=== PATIENT | female | born 1935 | race Caucasian/White ===

== ENCOUNTER 2016-04-25 07:21 | Emergency (ER) | payer MEDICARE ==
[2016-04-25 11:15] LABS: LYMPH - BF 28 %; MACROPHAGES BF 8 %; NEUT - BF 64 %
== END 2016-04-25 11:09 | disposition home or self-care (01) ==
LOC: D.ER 07:21
PROVIDERS: Emergency Medicine
DX: M25.462 Effusion, left knee (principal)

== ENCOUNTER 2016-06-25 01:14 | Inpatient (IN) | payer MEDICARE, OTHER ==
[~2016-06-25] VITALS: Ht 160 cm; Wt 49.9 kg
[2016-06-25 02:35] LABS: BASOPHILS 0.1 % (0-2); EOSINOPHILS 0 % (0-7); HEMATOCRIT 38.2 % (36.0-48.0); HEMOGLOBIN 12.4 g/dL (12-16); IMMATURE GRANULOCYTES 0.2 % (0-5); MCH 31.4 pg (26.0-34.0); MCHC 32.5 g/dL (31.0-37.0); MCV 96.7 fL (80.0-100.0); MEAN PLATELET VOLUME 9.5 fL (7.4-10.4); NEUTROPHILS 86.7 % (40-80); PLATELET COUNT 189 10x3/uL (130-400); RBC 3.95 10x6/uL (4.00-5.40); RDW 13.9 % (11.5-14.5); WBC 8.3 10x3/uL (4.8-10.8)
[2016-06-25 02:38] LABS: APTT 22.2 SECONDS (22.8-39.4)
[2016-06-25 02:42] LABS: ALBUMIN 3.3 g/dL (3.4-5.0); BILIRUBIN - TOTAL 0.4 mg/dL (0.2-1.3); CALCIUM 9.2 mg/dL (8.5-10.1); CARBON DIOXIDE 30.3 mmol/L (21.0-32.0); CREATININE - SERUM 0.8 mg/dL (0.6-1.3); POTASSIUM - SERUM 3.3 mmol/L (3.5-5.1)
[2016-06-25 02:49] LABS: TROPONIN-I 0.019 ng/mL (0.000-0.060)
--- NOTE | 2016-06-25 07:30 | NUR ---
RECIEVED PT FROM ER, PT RESTING COMFORTABLE IN BED WITH NO COMPLAINTS OF PAIN OR DISCOMFORT AT THIS TIME. ASSESSMENT DONE PER FLOWSHEET. BED IN LOW POSITION AND CALL LIGHT WITHIN REACH. WILL CONTINUE TO MONITOR.
[2016-06-25] MEDS ORDERED: ARICEPT5 MG PO (07:40)
[2016-06-25 08:16] VITALS: BP 142/57
[2016-06-25 09:42] VITALS: BMI 19.5
--- NOTE | 2016-06-25 10:20 | NUR ---
WAS CALLED INTO ROOM AT THIS TIME DUE TO PT HAVING AN EPISODE OF NAUSEA. PROTONIX GIVEN PER ORDER. PT STATED SHE WAS FEELING BETTER. BED IN LOW POSITION AND CALL LIGHT WITHIN REACH. WILL CONTINUE TO MONITOR.
[2016-06-25 12:22] VITALS: BP 107/59
[2016-06-25 14:14] LABS: APPEARANCE CLOUDY (CLEAR); BILIRUBIN NEGATIVE (NEGATIVE); COLOR YELLOW (YELLOW); GLUCOSE NEGATIVE (NEGATIVE); KETONE NEGATIVE (NEGATIVE); LEUKOCYTE ESTERASE 2+ (NEGATIVE); NITRITE POSITIVE (NEGATIVE); PROTEIN 1+ mg/dL (NEGATIVE); SPECIFIC GRAVITY 1.025 (1.005-1.020); UROBILINOGEN NORMAL (NORMAL)
[2016-06-25 14:16] LABS: BACTERIA MANY /hpf (NONE SEEN); EPITHELIAL CELLS RARE /hpf (0-5); MUCUS <1+ /lpf (NONE SEEN); WHITE CELLS - URINE >50 /hpf (0-5)
[2016-06-25 14:53] VITALS: Ht 160 cm; Wt 49.9 kg
[2016-06-25 16:31] VITALS: BP 136/63
--- NOTE | 2016-06-25 19:00 | NUR ---
PATIENT RESTING WITH EYES CLOSED SUPINE IN BED. AROUSES TO VOICE. ORIENTED X4. RR EVEN AND UNLABORED. 0 S/S OF DISTRESS. DENIES PAIN AT THIS TIME. IV TO RIGHT AC PATENT WITH NO REDNESS OR SWELLING. DANIELLE SECURES WITH STATLOCK AND DRAINING TO GRAVITY. B/A ON. DAUGHTER AT BEDSIDE. SRX2. BED LOW. CALL LIGHT WITHIN REACH.
[2016-06-25 20:00] VITALS: BP 150/69
--- NOTE | 2016-06-25 23:00 | NUR ---
NIGHTTIME MEDICATION GIVEN. DENIES NEEDS AT THIS TIME.
[2016-06-26] VITALS: BP 116/48
--- NOTE | 2016-06-26 00:30 | NUR ---
DILAUDID GIVEN FOR PAIN AND ZOFRAN GIVEN FOR NAUSEA PER ORDER.
[2016-06-26 04:00] VITALS: BP 140/56
[2016-06-26 05:45] LABS: BASOPHILS 0.2 % (0-2); EOSINOPHILS 0.5 % (0-7); HEMATOCRIT 35.8 % (36.0-48.0); HEMOGLOBIN 11.4 g/dL (12-16); IMMATURE GRANULOCYTES 0.2 % (0-5); LYMPHOCYTES 14.4 % (15-50); MCH 31.1 pg (26.0-34.0); MCHC 31.8 g/dL (31.0-37.0); MCV 97.5 fL (80.0-100.0); MEAN PLATELET VOLUME 9.8 fL (7.4-10.4); MONOCYTES 12.9 % (2-11); NEUTROPHILS 71.8 % (40-80); PLATELET COUNT 188 10x3/uL (130-400); RBC 3.67 10x6/uL (4.00-5.40); RDW 14.2 % (11.5-14.5); WBC 6.3 10x3/uL (4.8-10.8)
[2016-06-26 06:04] LABS: ALKALINE PHOSPHATASE 58 U/L (46-116); ALT (SGPT) 17 U/L (10-68); BILIRUBIN - TOTAL 0.58 mg/dL (0.2-1.3); CALC OSMOLALITY 276 mosm/kg (275-300); CARBON DIOXIDE 31.2 mmol/L (21.0-32.0); CHLORIDE - SERUM 104 mmol/L (98-107); CREATININE - SERUM 0.7 mg/dL (0.6-1.3); GLUCOSE 103 mg/dL (74-106); POTASSIUM - SERUM 4.8 mmol/L (3.5-5.1); PROTEIN - SERUM 6.6 g/dL (6.4-8.2); SODIUM 139 mmol/L (136-145); UREA NITROGEN 9 mg/dL (7-18); eGFR NON AFRICAN AMERICAN 85 mL/min (90-120)
--- NOTE | 2016-06-26 07:30 | NUR ---
PATIENT RESTING QUIETLY WITH EYES CLOSED. NO SIGNS OF DISTRESS NOTED. BED IN LOWEST POSITION, CALL LIGHT IN REACH. BED RAILS UP X'S 2. FAMILY MEMBER AT BEDSIDE IN THE RECLINER. PATIENT DENIES NEEDS.
--- NOTE | 2016-06-26 07:45 | NUR ---
PT ASSSESSMENT COMPLETE AWAKE AND ALERT ORIENTED X 3 LUNGS CLAER BILATERALLY HAS NOTED FX LEFT HIP NPO FOR POSSIBLE OR TODAY WITH DR LAURENT. FAMILY AT BEDSIDE. CALL LIGHT INR EACH SIDE RAILS UP
[2016-06-26 08:44] VITALS: BP 111/62
--- NOTE | 2016-06-26 11:00 | NUR ---
PT IV PULLED OUT AND LEAKING ON BED LINNEN CHANGED WILL RESITE IV
[2016-06-26 12:24] VITALS: BP 125/66
--- NOTE | 2016-06-26 14:00 | NUR ---
PT TO OR VIA BED AT THIS TIME.
--- NOTE | 2016-06-26 15:54 | NUR ---
DR PONCE GLOVES CHANGED, HOLE IN GLOVE, WILLAM.
[2016-06-26 17:20] VITALS: BP 122/63
--- NOTE | 2016-06-26 17:21 | NUR ---
PT RECIEVED BACK TO ROOM 2210 FROM POST RECOVERY AWAKE AND ALERT VS WNL SEE CHART. SPO2 100 %
--- NOTE | 2016-06-26 17:45 | NUR ---
PERIPHERIAL PULSE IN TACT TO LEFT FOOT SURGICAL DRESSING IN PLACE. NO ACUTE DISTRESS DENIES PAIN
--- NOTE | 2016-06-26 19:00 | NUR ---
PATIENT SUPINE IN BED. HOB 30 DEGREES. AAOX4. RR EVEN AND UNLABORED. 0 S/S OF DISTRESS. DENIES PAIN AT THIS TIME. IV TO LEFT HAND PATENT WITH NO REDNESS OR SWELLING. DRESSING TO LEFT HIP CDI. DANIELLE SECURED WITH STATLOCK AND DRAINING TO GRAVITY. B/A ON. DAUGHTER AT BEDSIDE. SRX2. BED LOW. CALL LIGHT WITHIN REACH.
[2016-06-26 20:00] VITALS: BP 128/69
--- NOTE | 2016-06-26 20:45 | NUR ---
PATIENT'S LEFT LEG IS COMPLETELY INVERTED. ATTEMPTED TO STRAIGHTEN IT OUT, BUT PATIENT CANNOT STAND ANY MOVEMENT. NOTIFIED DR. LAURENT. STAT PELVIC X-RAY ORDERED.
--- NOTE | 2016-06-26 21:45 | NUR ---
X-RAY CALLED AND STATED THAT "EVERYTHING LOOKS FINE." NOTIFIED DR. LAURENT OF RESULTS. NIGHTTIME MEDS GIVEN. NO OTHER NEEDS AT THIS TIME.
--- NOTE | 2016-06-26 23:50 | NUR ---
ATTEMPTED TO TURN PATIENT. PATIENT UNABLE TO TOLERATE. ZOFRAN AND DILAUDID GIVEN. TURNED PATIENT TO RIGHT SIDE.
[2016-06-27] VITALS: BP 126/76
[2016-06-27 04:00] VITALS: BP 115/74
[2016-06-27 05:29] LABS: BASOPHILS 0 % (0-2); EOSINOPHILS 0 % (0-7); HEMATOCRIT 33.1 % (36.0-48.0); HEMOGLOBIN 10.7 g/dL (12-16); IMMATURE GRANULOCYTES 0.1 % (0-5); LYMPHOCYTES 3.7 % (15-50); MCH 31.1 pg (26.0-34.0); MCHC 32.3 g/dL (31.0-37.0); MCV 96.2 fL (80.0-100.0); MEAN PLATELET VOLUME 9.8 fL (7.4-10.4); MONOCYTES 13.9 % (2-11); NEUTROPHILS 82.3 % (40-80); PLATELET COUNT 182 10x3/uL (130-400); RBC 3.44 10x6/uL (4.00-5.40); RDW 14.2 % (11.5-14.5)
[2016-06-27 05:30] LABS: WBC 9.5 10x3/uL (4.8-10.8)
[2016-06-27 05:55] LABS: ALBUMIN 2.7 g/dL (3.4-5.0); ALKALINE PHOSPHATASE 53 U/L (46-116); ALT (SGPT) 20 U/L (10-68); CALC OSMOLALITY 272 mosm/kg (275-300); CALCIUM 8.8 mg/dL (8.5-10.1); CARBON DIOXIDE 27.1 mmol/L (21.0-32.0); CHLORIDE - SERUM 103 mmol/L (98-107); CREATININE - SERUM 0.7 mg/dL (0.6-1.3); GLUCOSE 134 mg/dL (74-106); POTASSIUM - SERUM 4.3 mmol/L (3.5-5.1); PROTEIN - SERUM 6.3 g/dL (6.4-8.2); SODIUM 136 mmol/L (136-145); UREA NITROGEN 11 mg/dL (7-18); eGFR NON AFRICAN AMERICAN 85 mL/min (90-120)
--- NOTE | 2016-06-27 06:15 | NUR ---
MORNING MEDS GIVEN. PATIENT HAS BEEN EXTREMELY STIFF. GAVE DILAUDID AND ATTEMPTED TO REPOSITION PATIENT'S LEG.
--- NOTE | 2016-06-27 07:30 | NUR ---
PATIENT IS AWAKE, BUT STILL SLEEPY. SHE IS RECEIVING HER BREATHING TX. CHECKED BANDAGE TO LEFT HIP IT IS CDI, IV IN LEFT HAND IS PATENT, DANIELLE DRAINING WELL.
--- NOTE | 2016-06-27 09:00 | NUR ---
PATIENT IS MORE AWAKE AND ALERT, SHE IS PLEASANT, SHE WANTS TO MAKE SURE SHE DOES NOT ACT LIKE A WHINEY BABY. EXPLAINED TO HER THAT SHE IS NOT, SHE IS DOING GREAT.
[2016-06-27 09:04] VITALS: BP 101/62
[2016-06-27 11:40] VITALS: BP 86/71
--- NOTE | 2016-06-27 11:56 | NUR ---
Patient Name: SAVANAH GILBERT Admission Status: ER Accout number: [id number] Admission Date: 06-25-2016 : 1934 Admission Diagnosis: Attending: SANA Current LOS: 2 Anticipated DC Date: 06-30-2016 Planned Disposition: Inpatient Rehab Primary Insurance: MEDICARE A & B Discharge Planning Comments: CM MET WITH PATIENT WITH D/C NEEDS AND PLANS. PATIENT STATED SHE LIVES WITH A 24/7 CAREGIVER (CHRISTINA CHAMBERS). PATIENTS DAUGHTER (MYRNA) LIVES OUT OF TOWN. PATIENT HAS A RAMP TO ENTER HOME AND NO STAIRS INSIDE. PATIENT HAS A WALKER AND BUILT IN SHOWER CHAIR AT HER HOME. PATIENTS PCP IS DR. DOMÍNGUEZ AND HER PHARMACY IS [facility]. WHEN PATIENT IS DISCHARGED SHE WILL GO TO IP REHAB. CM WILL CONTINUE TO FOLLOW PATIENT WITH D/C NEEDS AND PLANS. PCP DR[facility] [phone] CHRISTINA (24/7 CAREGIVER) [phone] MYRNA (DAUGHTER) OUT OF TOWN Customer Experience Specialist: Mallory Castillo Is the patient Alert and Oriented? Yes 0 * How many steps to enter\exit or inside your home? RAMP 0 * PCP DR. DOMÍNGUEZ 0 * Pharmacy [facility] 0 * Preadmission Environment Home Alone 0 * ADLs Independent 0 * Equipment Walker 0 * List name and contact numbers for known caregivers / representatives who currently or will assist patient after discharge: MYRNA (DAUGHTER) CHRISTINA CHAMBERS (24/7 CAREGIVER) [phone] * Additional services required to return to the preadmission environment? Yes 0 * Can the patient safely return to the preadmission environment? Yes 0 * Has this patient been hospitalized within the prior 30 days at any hospital? No 0 Grand Total: 0
--- NOTE | 2016-06-27 12:00 | NUR ---
PATIENT IS PLEASANT NO NEEDS DENIES PAIN, ALTHOUGH, WHEN SHE MOVES HER LEFT LEG OR FOOT SHE DOES WHENCE. DOES NOT WANT PAIN MEDICINE.
--- NOTE | 2016-06-27 13:04 | NUR ---
Nutrition Follow Up: Pt was asleep at the time of RD visit. Interview deferred at this time. Pt is eating 25% meal avg on a regular diet. Wt stable. I>O. No BM recorded since admit. Labs reviewed. Meds noted. Pt with poor po intake at this time. Rec continue current diet. Will continue to provide selective menus and honor food preferences. RD will continue to monitor pt progress.
--- NOTE | 2016-06-27 13:14 | NUR ---
Rehab Note- Acute Rehab Prescreen order received. Visited with the patient and spoke with JERRY Tejada. Plan for admit to [facility] Acute Rehab on Thursday 06/29. Thank you for this referral! Bianca Paulson RN Clinical Liaison, [facility] Rehab/[place]
--- NOTE | 2016-06-27 14:00 | NUR ---
PATIENT HAS A COUPLE FRIENDS IN HER ROOM WITH HER, SHE IS TURNED OFF OF HER BUTTOCKS. NO C/O.
[2016-06-27 15:52] VITALS: BP 118/72
--- NOTE | 2016-06-27 17:38 | NUR ---
PATIENT WANTS TO TURN AND SO SHE REQUESTED PAIN MED, PROVIDED ZOFRAN AND DILAUDID IV SEE MAR.
--- NOTE | 2016-06-27 18:15 | NUR ---
TURNED PATIENT TO HER RIGHT SIDE AFTER MEDS TOOK AFFECT AND SHE DID WELL. NO C/O.
--- NOTE | 2016-06-27 19:42 | NUR ---
PT IN ROOM GETTING HER UP OUT OF BED. PATIENT IS PLEASANT SHE SAID SHE REALLY LIKED THE PT MAN.
[2016-06-27 20:00] VITALS: BP 113/68
--- NOTE | 2016-06-28 00:43 | NUR ---
ASSESSED AT THE ABEGINNING OF THE SHIFT. PT WAS SLEEPING AT THAT TIME AND HER DAUGHTER REMAINS AT THE BEDSIDE. THE DRESSING TO HER LEFT HIP IS DRY AND INTACT. SHE IS EASILY CONFUSED AND YOU HAVE TO TAKE A LITTLE TIME TO ORIENT HER WHEN SHE WAKES UP. SHE TOOK HER NIGHT MEDS AND HAS ALSO HAD A DOSE OF PAIN MEDS WHEN SHE WAS SHOWING PAIN. RIGHT NOW SHE IS ASLEEP WITH EASY RESPIRATIONS AND THE DAUGHTER ASKED THAT WE LET HER SLEEP THROUGH THE MIDNIGHT VITAL SIGNS. THE BED IS LOW, RAILS UP X'S 2 WITH THE CALL LIGHT AT HAND, SHE IS BEING TURNED PER PROTOCOL.
[2016-06-28 04:00] VITALS: BP 120/70
[2016-06-28 06:59] LABS: BASOPHILS 0.1 % (0-2); EOSINOPHILS 0.2 % (0-7); HEMATOCRIT 28.2 % (36.0-48.0); HEMOGLOBIN 9.2 g/dL (12-16); IMMATURE GRANULOCYTES 0.4 % (0-5); LYMPHOCYTES 8.5 % (15-50); MCH 31.3 pg (26.0-34.0); MCHC 32.6 g/dL (31.0-37.0); MCV 95.9 fL (80.0-100.0); MEAN PLATELET VOLUME 9.5 fL (7.4-10.4); MONOCYTES 11.9 % (2-11); NEUTROPHILS 78.9 % (40-80); PLATELET COUNT 170 10x3/uL (130-400); RBC 2.94 10x6/uL (4.00-5.40); WBC 9.8 10x3/uL (4.8-10.8)
--- NOTE | 2016-06-28 07:20 | NUR ---
PATIENT RECEIVED IN MID DUNNE POSITION RESTING WITH EYES CLOSED. RESPIRATIONS EVEN AND UNLABORED. DAUGHTER AT BEDSIDE. SIDE RAILS UP X2. BED IN LOW POSITION. CALL LIGHT IN REACH.
[2016-06-28 07:21] LABS: ALBUMIN 2.2 g/dL (3.4-5.0); ALKALINE PHOSPHATASE 56 U/L (46-116); BILIRUBIN - TOTAL 0.66 mg/dL (0.2-1.3); CALC OSMOLALITY 259 mosm/kg (275-300); CALCIUM 8.2 mg/dL (8.5-10.1); CARBON DIOXIDE 27.2 mmol/L (21.0-32.0); CHLORIDE - SERUM 99 mmol/L (98-107); CREATININE - SERUM 0.7 mg/dL (0.6-1.3); GLUCOSE 91 mg/dL (74-106); POTASSIUM - SERUM 3.8 mmol/L (3.5-5.1); PROTEIN - SERUM 5.7 g/dL (6.4-8.2); SODIUM 130 mmol/L (136-145); UREA NITROGEN 10 mg/dL (7-18); eGFR NON AFRICAN AMERICAN 85 mL/min (90-120)
[2016-06-28 07:23] LABS: ALT (SGPT) 14 U/L (10-68)
[2016-06-28 07:32] VITALS: BP 132/62
--- NOTE | 2016-06-28 08:30 | NUR ---
PATIENT REPOSITIONED IN BED. WELL TOLERATED. FAMILY AT BEDSIDE. SIDE RAILS UP X2. BED IN LOW POSITION. CALL LIGHT IN REACH.
[2016-06-28 11:20] VITALS: BP 106/54
--- NOTE | 2016-06-28 11:35 | NUR ---
URINE SAMPLE OBTAINED FROM DANIELLE VIA ACCESS PORT.
[2016-06-28 11:57] LABS: APPEARANCE HAZY (CLEAR); BILIRUBIN NEGATIVE (NEGATIVE); COLOR YELLOW (YELLOW); GLUCOSE NEGATIVE (NEGATIVE); KETONE NEGATIVE (NEGATIVE); LEUKOCYTE ESTERASE 2+ (NEGATIVE); NITRITE NEGATIVE (NEGATIVE); PROTEIN NEGATIVE (NEGATIVE); SPECIFIC GRAVITY 1.005 (1.005-1.020); UROBILINOGEN NORMAL (NORMAL)
[2016-06-28 12:00] LABS: BACTERIA MODERATE /hpf (NONE SEEN); RED CELLS - URINE 0-5 /hpf (0-5); WHITE CELLS - URINE >50 /hpf (0-5)
[2016-06-28 12:01] LABS: EPITHELIAL CELLS OCC /hpf (0-5)
--- NOTE | 2016-06-28 13:59 | NUR ---
PATIENT IN MID DUNNE POSITION RESTING WITH EYES CLOSED. RESPIRATIONS EVEN AND UNLABORED. SIDE RAILS UP X2. BED IN LOW POSITION. CALL LIGHT IN REACH. FAMILY AT BEDSIDE.
[2016-06-28 15:26] VITALS: BP 131/66
--- NOTE | 2016-06-28 15:45 | NUR ---
DANIELLE CARE PROVIDED. DANIELLE CATH D/C WITH TIP INTACT. APPROXIMATELY 200CC REMAINED IN COLLECTION BAG. WELL TOLERATED. REPOSITIONED FOR COMFORT. SIDE RAILS UP X2. BED IN LOW POSITION. CALL LIGHT IN REACH. BED ALARM ON.
--- NOTE | 2016-06-28 16:30 | NUR ---
ALERT IN BED WATCHING TV. RESPIRATIONS EVEN AND UNLABORED. SIDE RAILS UP X2. DENIES PAIN. CALL LIGHT IN REACH. BED IN LOW POSITION.
--- NOTE | 2016-06-28 18:00 | NUR ---
ALERT IN BED WATCHING TV WITH DAUGHTER AT BEDSIDE. SIDE RAILS UP X2. BED IN LOW POSITION. CALL LIGHT IN REACH.
[2016-06-28 20:00] VITALS: BP 120/68
[2016-06-29] VITALS: BP 125/80
--- NOTE | 2016-06-29 03:33 | NUR ---
ASSESSED AT THE BEGINNING OF THE SHIFT. PT IS RESTING WELL WITH DAUGHTER AT THE BEDSIDE. WE ARE ASSISTING HER WITH THE BEDPAN FOR VOIDING AND ALSO TRYING TO MAKE SURE SHE TURNS PER PROTOCOL. SHE IS NOT WANTING TO MOVE MUCH BECAUSE IT HURTS. SHE TOOK ALL HER HS MEDS AND ALSO PAIN MEDS ORDERED. HER SCD'S ARE IN PLACE AND SHE HAS RESTED WELL. THE BED IS LOW, RAILS UP X'S 2 WITH THE CALL LIGHT AT THE DAUGHTERS SIDE.
[2016-06-29 04:00] VITALS: BP 131/81
[2016-06-29 05:29] LABS: BASOPHILS 0.1 % (0-2); EOSINOPHILS 0.5 % (0-7); HEMATOCRIT 27.3 % (36.0-48.0); IMMATURE GRANULOCYTES 0.2 % (0-5); LYMPHOCYTES 8.1 % (15-50); MCH 31.7 pg (26.0-34.0); MCV 96.1 fL (80.0-100.0); MEAN PLATELET VOLUME 9.5 fL (7.4-10.4); MONOCYTES 7.8 % (2-11); NEUTROPHILS 83.3 % (40-80); PLATELET COUNT 202 10x3/uL (130-400); RBC 2.84 10x6/uL (4.00-5.40); WBC 8.3 10x3/uL (4.8-10.8)
[2016-06-29 05:52] LABS: ALBUMIN 2.1 g/dL (3.4-5.0); ALKALINE PHOSPHATASE 71 U/L (46-116); ALT (SGPT) 12 U/L (10-68); CALC OSMOLALITY 273 mosm/kg (275-300); CALCIUM 8.4 mg/dL (8.5-10.1); CARBON DIOXIDE 30.8 mmol/L (21.0-32.0); CHLORIDE - SERUM 102 mmol/L (98-107); CREATININE - SERUM 0.7 mg/dL (0.6-1.3); GLUCOSE 111 mg/dL (74-106); POTASSIUM - SERUM 4.2 mmol/L (3.5-5.1); PROTEIN - SERUM 5.7 g/dL (6.4-8.2); SODIUM 137 mmol/L (136-145); UREA NITROGEN 11 mg/dL (7-18); eGFR NON AFRICAN AMERICAN 85 mL/min (90-120)
--- NOTE | 2016-06-29 07:45 | NUR ---
SLEEPING AT THIS TIME. LYING SUPINE WITH RESPIRATIONS EVEN AND NON LABORED. BED ALARM ON AND IN WORKING ORDER. DAUGHTER AT BEDSIDE SLEEPING IN RECLINER. CALL LIGHT IN REACH, WILL CONTINUE WITH PLAN OF CARE.
[2016-06-29 09:06] VITALS: BP 118/63
--- NOTE | 2016-06-29 09:28 | NUR ---
SCHEDULED MEDICATIONS ADMINISTERED AT THIS TIME WITHOUT DIFFICULTY. ASSESSMENT PERFORMED PER FLOWSHEET. DAUGHTER AT BEDSIDE. DENIES NEED FOR PAIN MEDICATION AT THIS TIME. WILL CONTINUE WITH PLAN OF CARE.
--- NOTE | 2016-06-29 10:15 | NUR ---
ASSISTED ON BED COREY SO THAT PT COULD VOID AT THIS TIME. UP IN CHAIR PER PHYSICAL THERAPY. ASSISTED ON BED COREY IN THE CHAIR WITH 2 PERSON ASSIST. CALL LIGHT IN REACH AND INSTRUCTED PT TO CALL WHEN SHE WAS FINISHED. VERBALIZED UNDERSTANDING. WILL CONTINUE WITH PLAN OF CARE.
[2016-06-29 11:48] VITALS: BP 135/68
--- NOTE | 2016-06-29 12:48 | NUR ---
PRN NORCO-5 2 TABLETS ADMINISTERED FOR PAIN AT THIS TIME. PT WILL BE TRANSFERRED TO [facility] IN DISCHARGE ORDERS ARE PLACED IN THE COMPUTER AND DISCHARGE PAPERWORK IS COMPLETE. FAMILY REMAINS AT BEDSIDE. WILL CONTINUE WITH PLAN OF CARE.
--- NOTE | 2016-06-29 13:35 | NUR ---
SPOKE WITH DR LAURENT AT THIS TIME. HE STATED THAT PT WAS OKAY TO D/C TO REHAB FROM HIS STANDPOINT. EXPLAINED THAT INDIRA JORDAN WAS CONCERNED D/T PATIENT'S INTERNAL ROTATION OF LEFT LEG. HE STATED THAT PT IS ALWAYS INTERNALLY ROTATED AND THAT SHE CAN CONTINUE WITH D/C TO INPATIENT REHAB.
[2016-06-29] MEDS ORDERED: HYDROCODON-ACE1 EAC7 PO (15:14)
[2016-06-29] MEDS ORDERED: ELIQUIS2.5 MG PO (15:14)
--- NOTE | 2016-06-29 16:00 | NUR ---
REPORT CALLED TO YAYO KARIMI IN REHAB. PT TRANSFERRED TO ROOM 1119B VIA BED.
== END 2016-06-29 16:10 | DRG 470 ==
LOC: D.ER 01:14 → D.MS 02:11
PROVIDERS: Family Medicine; Orthopaedic Surgery; ADMIT Emergency Medicine
PROC: 0SRB0JZ Replacement of Left Hip Joint with Synthetic Substitute, Open Approach (ICD-10-PCS; principal; 2016-06-26 14:15)
DX: S72.142A Displaced intertrochanteric fracture of left femur, initial encounter for closed fracture (principal); D62 Acute posthemorrhagic anemia; W19.XXXA Unspecified fall, initial encounter; M16.12 Unilateral primary osteoarthritis, left hip; E87.6 Hypokalemia; M25.462 Effusion, left knee

== ENCOUNTER 2016-06-29 14:12 | Inpatient (IN) | payer MEDICARE, OTHER ==
[~2016-06-29] VITALS: Ht 160 cm; Wt 57.6 kg
[~2016-06-29 14:12] MED LIST: ARICEPT5 MG PO
[2016-06-29] MEDS ORDERED: HYDROCODON-ACE1 EAC7 PO (15:14)
[2016-06-29] MEDS ORDERED: ELIQUIS2.5 MG PO (15:14)
[2016-06-29 17:08] VITALS: BP 126/48; BMI 22.5
--- NOTE | 2016-06-29 18:47 | NUR ---
RESTING QUIETLY IN BED. MAX ASST WITH TURNING. CALL LIGHT IN REACH
--- NOTE | 2016-06-30 00:06 | NUR ---
PT REST IN BED, DENIES NEEDS.
--- NOTE | 2016-06-30 00:23 | NUR ---
PT REST QUIETLY IN BED, EYE CLOSE, BED IN LOW POSITION, CALL LIGHT WITHIN REACH.
--- NOTE | 2016-06-30 00:37 | NUR ---
ASSISIED PT WITH BEDPAN.
[2016-06-30 02:21] VITALS: BP 112/56
--- NOTE | 2016-06-30 04:00 | NUR ---
RESTING QUIETLY, EYES CLOSED.
[2016-06-30 06:53] LABS: BASOPHILS 0.3 % (0-2); EOSINOPHILS 2.6 % (0-7); HEMATOCRIT 25.4 % (36.0-48.0); HEMOGLOBIN 8.3 g/dL (12-16); IMMATURE GRANULOCYTES 0.3 % (0-5); LYMPHOCYTES 14.1 % (15-50); MCH 31.6 pg (26.0-34.0); MCHC 32.7 g/dL (31.0-37.0); MCV 96.6 fL (80.0-100.0); MEAN PLATELET VOLUME 8.8 fL (7.4-10.4); MONOCYTES 10.4 % (2-11); NEUTROPHILS 72.3 % (40-80); PLATELET COUNT 231 10x3/uL (130-400); RBC 2.63 10x6/uL (4.00-5.40); RDW 14.3 % (11.5-14.5); WBC 6.3 10x3/uL (4.8-10.8)
[2016-06-30 07:14] LABS: CALC OSMOLALITY 276 mosm/kg (275-300); CALCIUM 8.3 mg/dL (8.5-10.1); CARBON DIOXIDE 32.3 mmol/L (21.0-32.0); CHLORIDE - SERUM 104 mmol/L (98-107); CREATININE - SERUM 0.6 mg/dL (0.6-1.3); GLUCOSE 93 mg/dL (74-106); POTASSIUM - SERUM 3.6 mmol/L (3.5-5.1); SODIUM 139 mmol/L (136-145); UREA NITROGEN 10 mg/dL (7-18); eGFR NON AFRICAN AMERICAN > 90 mL/min (90-120)
[2016-06-30 08:38] VITALS: BP 104/46
--- NOTE | 2016-06-30 16:52 | NUR ---
Patient in bed tearful due to pain in left hip, knee and foot. Patient repositioned with pillows. Prn pain medicine given [place] 5. Patient is now sleeping peacefully. Continue to monitor
--- NOTE | 2016-06-30 20:00 | NUR ---
PT IN BED WITH HOB UP FOR COMFORT. WATCHING TV. PT CODE STATUS IS DNR. NO 02. LEFT FA SALINE LOC DOES NOT FLUSH. INCONTINENT. PAIN LEVEL 0/10. LEFT HIP DRESSING IS C/D/I. BED ALARM. BED IN LOWEST POSITION AND CALL LIGHT WITHIN REACH.
[2016-06-30 22:07] VITALS: BP 115/68
--- NOTE | 2016-07-01 | NUR ---
PT IN BED WITH HOB UP FOR COMFORT. EYES CLOSED. CHEST RISING AND FALLING. BED IN LOWEST POSITION AND CALL LIGHT WITHIN REACH.
--- NOTE | 2016-07-01 04:00 | NUR ---
PT IN BED WITH HOB UP FOR COMFORT. EYES CLOSED. RESPIRATIONS EVEN AND UNLABORED. BED IN LOWEST POSITION AND CALL LIGHT WITHIN REACH.
--- NOTE | 2016-07-01 05:18 | NUR ---
CODE STATUS UPDATED PER PHYSICIAN ORDER. RESPIRATIONS REGULAR AND UNLABORED NO S/S OF ACUTE DISTRESS.
--- NOTE | 2016-07-01 08:00 | NUR ---
SHIFT ASSMT COMPLETED.DENIES NEEDS.LEFT HIP DRSG INTACT.SOME DRAINAGE NOTED UNDERNEATH.STATES NAUSEA.WILL GIVE ZOFRAN.
[2016-07-01 09:26] VITALS: BP 121/71
--- NOTE | 2016-07-01 09:30 | NUR ---
SLEEPING IN BED.
--- NOTE | 2016-07-01 10:30 | NUR ---
SITTING UP IN BED DRINKING ENSURE.DENIES NAUSEA.
--- NOTE | 2016-07-01 12:00 | NUR ---
SITTING UP IN BED EATING LUNCH.
--- NOTE | 2016-07-01 15:53 | NUR ---
PATIENT ADMITTED TO REHAB FROM ACUTE FLOOR. 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 HER PCP IS DR. DOMÍNGUEZ, SHE HAS A WALER AT HOME AND [facility] IN [place]. WILL CONTINUE TO FOLLOW WITH PATIENT AND WILL ASSIST WITH DISCHARGE NEEDS.
--- NOTE | 2016-07-01 19:45 | NUR ---
PT REST IN BED, DENIES NEEDS.
[2016-07-01 21:02] VITALS: BP 118/70
--- NOTE | 2016-07-02 01:06 | NUR ---
HELPING PT WITH LUNCH MENU.
--- NOTE | 2016-07-02 01:09 | NUR ---
ASSISTED PT WITH BEDPAN.
--- NOTE | 2016-07-02 04:38 | NUR ---
PT REST QUIETLY IN BED, BED LOW, CALL LIGHT WITHIN REACH.
--- NOTE | 2016-07-02 05:38 | NUR ---
PT RESTING QUIETLY, NO S/S OF ACTUE DISTRESS.
[2016-07-02 06:24] LABS: BASOPHILS 0.7 % (0-2); EOSINOPHILS 7.1 % (0-7); HEMATOCRIT 26.7 % (36.0-48.0); HEMOGLOBIN 8.6 g/dL (12-16); IMMATURE GRANULOCYTES 1.5 % (0-5); LYMPHOCYTES 26.3 % (15-50); MCH 31.6 pg (26.0-34.0); MCHC 32.2 g/dL (31.0-37.0); MCV 98.2 fL (80.0-100.0); MEAN PLATELET VOLUME 8.5 fL (7.4-10.4); MONOCYTES 16.3 % (2-11); NEUTROPHILS 48.1 % (40-80); RBC 2.72 10x6/uL (4.00-5.40); RDW 14.7 % (11.5-14.5)
[2016-07-02 06:30] LABS: PLATELET COUNT 315 10x3/uL (130-400); WBC 4.5 10x3/uL (4.8-10.8)
[2016-07-02 06:46] LABS: CALC OSMOLALITY 282 mosm/kg (275-300); CALCIUM 8.7 mg/dL (8.5-10.1); CARBON DIOXIDE 35.2 mmol/L (21.0-32.0); CHLORIDE - SERUM 105 mmol/L (98-107); CREATININE - SERUM 0.7 mg/dL (0.6-1.3); GLUCOSE 88 mg/dL (74-106); POTASSIUM - SERUM 3.9 mmol/L (3.5-5.1); SODIUM 142 mmol/L (136-145); eGFR NON AFRICAN AMERICAN 85 mL/min (90-120)
[2016-07-02 06:47] LABS: UREA NITROGEN 16 mg/dL (7-18)
--- NOTE | 2016-07-02 08:00 | NUR ---
SHIFT ASSMT COMPLETED.DENIES NEEDS.MEAL SET-UP PROVIDED.
[2016-07-02 09:18] VITALS: BP 129/69
--- NOTE | 2016-07-02 12:00 | NUR ---
MEAL SET-UP PROVIDED.CL IN REACH.
[2016-07-02 13:32] VITALS: Ht 160 cm; Wt 57.6 kg
--- NOTE | 2016-07-02 16:00 | NUR ---
RESTING QUIETLY.CL IN REACH.
--- NOTE | 2016-07-02 17:07 | NUR ---
CARE TEAM MEETING: PATIENT NEW TO UNIT, CONFERENCE CALL WITH DAUGHTER MYRNA THAT LIVES IN [place]. PLANS ARE FOR PATIENT TO MOVE TO [place] WITH HER DAUGHTER. WILL CONTINUE TO FOLLOW WITH PATIENT.
[2016-07-02 19:54] VITALS: BP 118/74
--- NOTE | 2016-07-02 20:00 | NUR ---
PT RECEIVED IN BED WITH EYES OPEN SITTING ON SIDE OF BED. PT ATTEMPTING TO CALL OUT OF STATE AND WAS CALLING [facility] [facility]. UPON ASSESSMENT PT CALM WITHOUT COMPLINT AND VERY TALKATIVE. NO SIGN/SYMPTOMS OF DISTRESS NOTED. CALL LIGHT IN REACH. WILL CONTINUE TO OBSERVE.
--- NOTE | 2016-07-02 23:14 | NUR ---
PT UP IN WHEELCHAIR. PT ASSISTED TO BATHROOM FOR URINE ONLY AND REQUESTED TO REMAIN IN WHEELCHAIR FOR AWHILE. WILL CONTINUE TO OBSERVE. CALL LIGHT IN REACH.
--- NOTE | 2016-07-03 01:44 | NUR ---
PT IN BED WITH EYES CLOSED AND CHEST RISING. NO CONCERNS NOTED AT THIS TIME. CALL LIGHT IN REACH. WILL CONTINUE TO OBSERVE.
--- NOTE | 2016-07-03 06:46 | NUR ---
PT IN BED WITH EYES CLOSED AND CHEST RISING. NO CONCERNS NOTED AT THIS TIME. CALL LIGHT IN REACH.
[2016-07-03 08:03] LABS: T4 THYROXINE 7.8 ug/dL (4.7-13.3); THYROID STIMULATING HORMONE 1.18 uIU/mL (0.36-3.74)
--- NOTE | 2016-07-03 08:25 | NUR ---
RESTING IN BED.CONFUSED AND DISORIENTED.SHORT BURST OF CRYING TYPE SOUNDS.WANTS TO USE BEDPAN.ASSISTED ONTO FX COREY.DIDNOT URINATE IN COREY.FRESH DEPEND PUT ON HER DUE TO WETTNESS OF OLD DEPEND.CL PLACED IN EASY REACH AND INSTRUCTED TO PUSH RED BUTTON IF SHE NEEDS ANYTHING.PHONE PLACED IN EASY REACH.WILL CONTINUE WITH PLAN OF CARE.
[2016-07-03 09:43] VITALS: BP 107/47
--- NOTE | 2016-07-03 19:35 | NUR ---
PT RECEIVED IN BED WITH EYES CLOSED AND CHEST RISING. EASILY AROUSED TO VERBAL STIMULI. NO CONCERNS MADE KNOWN AT THIS TIME. CALL LIGHT IN REACH. WILL CONTINUE TO OBSERVE.
[2016-07-03 22:11] VITALS: BP 116/71
--- NOTE | 2016-07-03 23:41 | NUR ---
PT IN BED WITH EYES CLOSED AND CHEST RISING AT THIS TIME. RECIEVED HS MEDICATIONS PER APR. PT INCONTINENT OF BLADDER WITH PERICARE PROVIDED AND BRIEF CHANGE. CALL LIGHT IN REACH. WILL CONTINUE TO OBSERVE.
--- NOTE | 2016-07-04 02:46 | NUR ---
PT REQUEST ASSIST TO BATHROOM PT ALREADY INCONTINENT WITH PERICARE PROVIDED AND NEW BRIEF APPLIED. NO OTHER NEEDS OR CONCERNS NOTED AT THIS TIME. CALL LIGHT IN REACH. WILL CONTINUE TO OBSERVE.
--- NOTE | 2016-07-04 06:58 | EEG ---
PATIENT:SAVANAH GILBERT DATE OF SERVICE: 06/29/16 MEDICAL RECORD: [id number] DATE OF : 33 LOCATION:D.[address] [facility] ADMISSION DATE: 06/29/16 REFERRING PHYSICIAN: INTERPRETING PHYSICIAN: MO LOZA MD DATE OF SERVICE: 07/03/2016 REFERRED BY: Dr. Carlton as an inpatient, currently in room 1119. ELECTROENCEPHALOGRAM NUMBER: [id number]. DATE OF EXAMINATION: 07/02/2016 at 2:30 p.m. TECHNICAL DATA: This electroencephalographic recording consisted of approximately 20 minutes of data collection utilizing the international 10/20 system of electrode placement and both referential and non-referential montages. Sixteen channels of electrocerebral recording are accompanied by a 17th channel dedicated to the electrocardiographic rhythm and 2 channels of electromyographic recording. Recording is performed in the awake and drowsy states utilizing activation by photic stimulation. ELECTROENCEPHALOGRAPHIC DATA: The awake state comprises approximately 40% of the recorded electrocerebral activity. Electromyographic artifact is prominent and rapid eye movements are occasionally seen. The posterior dominant background consists of a symmetric, semi-rhythmic, waxing and waning 6-7 Hz theta activity, which is suppressed by eye opening. The drowsy state comprises the remaining portion of the recorded electrocerebral activity. Electromyographic artifact is diminished and rapid eye movements are not seen. The posterior dominant background is relatively suppressed and tends more towards 6 Hz. No focal slowing is identified. No epileptiform discharges are seen. Photic stimulation induces no abnormal change in the recorded electrocerebral activity. INTERPRETATION: Background slow (awake and drowsy). This electroencephalographic recording is indicative of a mild diffuse encephalopathy. TRANSINT:[id number] Voice Confirmation ID: [id number] DOCUMENT ID: [id number] MO LOZA MD at 0658 CC: [id number] DICTATION DATE: 07/03/16 0623 STONECUTTER ASSISTANT: 07/03/16 [address] [facility] [address] [id number]
[2016-07-04 07:16] LABS: BASOPHILS 0.6 % (0-2); EOSINOPHILS 4.6 % (0-7); HEMATOCRIT 26.5 % (36.0-48.0); HEMOGLOBIN 8.3 g/dL (12-16); IMMATURE GRANULOCYTES 1.7 % (0-5); LYMPHOCYTES 25.8 % (15-50); MCH 31.2 pg (26.0-34.0); MCHC 31.3 g/dL (31.0-37.0); MCV 99.6 fL (80.0-100.0); MEAN PLATELET VOLUME 8.4 fL (7.4-10.4); MONOCYTES 13.4 % (2-11); NEUTROPHILS 53.9 % (40-80); PLATELET COUNT 348 10x3/uL (130-400); RBC 2.66 10x6/uL (4.00-5.40); RDW 15.8 % (11.5-14.5); WBC 5.4 10x3/uL (4.8-10.8)
[2016-07-04 07:31] LABS: RAPID PLASMA REAGIN Non Reactive (Non Reactive)
[2016-07-04 07:51] LABS: CALC OSMOLALITY 285 mosm/kg (275-300); CALCIUM 8.6 mg/dL (8.5-10.1); CARBON DIOXIDE 33.8 mmol/L (21.0-32.0); CHLORIDE - SERUM 107 mmol/L (98-107); CREATININE - SERUM 0.6 mg/dL (0.6-1.3); GLUCOSE 104 mg/dL (74-106); POTASSIUM - SERUM 4.4 mmol/L (3.5-5.1); SODIUM 143 mmol/L (136-145); UREA NITROGEN 14 mg/dL (7-18); eGFR NON AFRICAN AMERICAN > 90 mL/min (90-120)
[2016-07-04 09:02] VITALS: BP 137/58
--- NOTE | 2016-07-04 14:17 | NUR ---
Nutrition Follow Up: Chart reviewed. Pt is eating 34% meal avg on a regular diet. She is receiving Ensure TID. Wt stable. No BM since admit. Labs and meds reviewed. Rec continue current diet, supplement regimen. Rec consider an appetite stimulant. RD following.
[2016-07-04 19:00] VITALS: BP 110/72
--- NOTE | 2016-07-04 19:40 | NUR ---
ASSISTED PT WITH BEDPAN.
--- NOTE | 2016-07-04 21:20 | NUR ---
PT REST QUIETLY IN BED, EYE CLOSE, BED LOW, CALL LIGHT WITHIN REACH.
--- NOTE | 2016-07-05 00:55 | NUR ---
ASSISTED PATIENT'S PRIMARY NURSE TO REPOSITION PATIENT UP IN BED. PATIENT HAS NO COMPLAINTS AT THIS TIME.
--- NOTE | 2016-07-05 01:12 | NUR ---
ASSISED PT TO BATHROOM AND BACK TO BED.
--- NOTE | 2016-07-05 02:58 | NUR ---
PT REST QUIETLY IN BED, EYE CLOSE, CALL LIGHT WITHIN REACH.
[2016-07-05 08:00] VITALS: BP 128/61
--- NOTE | 2016-07-05 08:00 | NUR ---
SHIFT ASSMT COMPLETED.CL IN REACH.TAKEN TO BATHROOM.DEPENDS WET WITH URINE.CHANGED AND SET UP FOR MEAL IN .
--- NOTE | 2016-07-05 12:00 | NUR ---
SITTING UP IN CHAIR EATING MEAL.CL IN REACH.
--- NOTE | 2016-07-05 16:00 | NUR ---
RESTING QUIETLY.CL IN REACH.
--- NOTE | 2016-07-05 19:50 | NUR ---
ASSISTED TO BATHROOM, AND BACK TO BED.
--- NOTE | 2016-07-05 22:59 | NUR ---
HELPING FILL IN MENU FOR TOMORROW LUNCH AND DINNER.
--- NOTE | 2016-07-06 00:45 | NUR ---
IN BED, EYES CLOSED. NO DISTRESS EVIDENT.
[2016-07-06 02:16] VITALS: BP 121/56
--- NOTE | 2016-07-06 02:49 | NUR ---
ASSISTED PT TO BATHROOM AND BACK TO BED.
[2016-07-06 08:00] VITALS: BP 125/84
--- NOTE | 2016-07-06 20:25 | NUR ---
PT. SITTING UP IN W/C AND IS READY TO GO BACK TO BED. ASSISTED PT. BACK TO BED WITH MIN. ASSIST BUT USING VERBAL CUES. PT. POSITIONED TO COMFORT. ASSESSMENT COMPLETED. NO VOICED NEEDS AND PT. HAS HER CALL LIGHT WITHIN REACH.
--- NOTE | 2016-07-06 23:08 | NUR ---
PT. IN BED WITH HOB UP FOR COMFORT WITH EYES CLOSED AND RESP. DEEP AND EVEN. CALL LIGHT WITHIN REACH.
[2016-07-06 23:20] VITALS: BP 136/54
--- NOTE | 2016-07-07 03:19 | NUR ---
PT. IN BED WITH HOB ALMOST FLAT AND LE'S ELEVATED. EYES CLOSED AND MOUTH WIDE OPEN AND BREATHING DEEP. CALL LIGHT WITHIN REACH.
--- NOTE | 2016-07-07 07:41 | NUR ---
RESTING QUIETLY IN BED CALL LIGHT IN REACH
[2016-07-07 09:11] VITALS: BP 110/46
--- NOTE | 2016-07-07 15:32 | NUR ---
PT OUT OF ROOM IN GYM WORKING WITH DELIA/INDIRA
[2016-07-07 19:04] VITALS: BP 120/63
--- NOTE | 2016-07-07 19:35 | NUR ---
PT. IN BED WITH HOB UP FOR COMFORT AND PILLOW BETWEEN KNEES TO HELP DECREASE RISK OF LLE TURNING INWARD. ASSESSMENT COMPLETED. ASSISTED PT. TO BR TO URINATE AND POSSIBLY HAVE BM. NO OTHER VOICED NEEDS AT THIS TIME AND EMERGENCY PULL CORD WITHIN PT. REACH IN THE BR.
--- NOTE | 2016-07-07 23:04 | NUR ---
PT. IN BED WITH HOB UP FOR COMFORT WITH EYES CLOSED AND RESP. DEEP AND EVEN. PILLOW REMAINS BETWEEN KNEES TO HELP PREVENT LLE ROTATING INWARD. CALL LIGHT WITHIN REACH.
--- NOTE | 2016-07-08 03:03 | NUR ---
PT. IN BED WITH HOB UP FOR COMFORT. EYES CLOSED AND RESP. DEEP AND EVEN. CALL LIGHT WITHIN REACH.
--- NOTE | 2016-07-08 06:31 | NUR ---
PT. IN BED WITH HOB UP FOR COMFORT. EYES CLOSED AND RESP. DEEP AND EVEN. CALL LIGHT WITHIN REACH.
[2016-07-08 08:00] VITALS: BP 112/42
--- NOTE | 2016-07-08 12:21 | NUR ---
ATE SMALL PORTION OF LUNCH. DENIES BEING VERY HUNGRY. ALERT AND ORIENTED X3. PAIN TO LEFT HIP WITH MOVEMENT NOTED. PAIN MEDS GIVEN ORDERED.
--- NOTE | 2016-07-08 13:45 | NUR ---
Nutrition Follow Up: Pt reported that her appetite is good. She is eating 46% meal avg on a regular diet. She is receiving Ensure TID. +BM 07/08/16. No new wt to assess. Meds and labs reviewed. Rec continue current diet. Will continue to send Ensure TID. RD following.
--- NOTE | 2016-07-08 19:40 | NUR ---
PT RESTING WITH EYES CLOSED, RESP QUIET, NO DISTRESS NOTED, LEFT UNDISTURBED AT THIS TIME
--- NOTE | 2016-07-08 20:34 | NUR ---
PT DESKTOP ENGINEER LIGHT, PT REPORTS VOIDING ON SELF, ASSESSMENT PER FLOW SHEET, GENERAL FARMWORKER TO ROOM FOR BED BATH, ADM 2100 MEDS PO PER MD ORDERS, SEE EMAR
--- NOTE | 2016-07-08 21:33 | NUR ---
PT RESTING WITH EYES CLOSED, RESP QUIET, NO DISTRESS NOTED, LEFT UNDISTURBED AT THIS TIME
[2016-07-08 21:47] VITALS: BP 123/60
--- NOTE | 2016-07-08 22:10 | NUR ---
PT RESTING WITH EYES CLOSED, RESP QUIET, NO DISTRESS NOTED, LEFT UNDISTURBED AT THIS TIME
--- NOTE | 2016-07-09 00:03 | NUR ---
PT RESTING WITH EYES CLOSED, RESP QUIET, NO DISTRESS NOTED, LEFT UNDISTURBED AT THIS TIME
--- NOTE | 2016-07-09 02:00 | NUR ---
PT RESTING WITH EYES CLOSED, RESP QUIET, NO DISTRESS NOTED, LEFT UNDISTURBED AT THIS TIME
--- NOTE | 2016-07-09 04:18 | NUR ---
PT RESTING WITH EYES CLOSED, RESP QUIET, NO DISTRESS NOTED, LEFT UNDISTURBED AT THIS TIME
--- NOTE | 2016-07-09 06:30 | NUR ---
PT RESTING WITH EYES CLOSED, AROUSES TO SOFT VERBAL STIMULATION, PT VERY WET FROM URINE, WHOLE BEDDING, SHIRT, AND ADULT GARMENT CHANGED, PT CLEANED UP WITH WET WARM BATH CLOTHS, DRESSING CHANGED PER YAYO CASANOVA, PT DENIES NEEDS
--- NOTE | 2016-07-09 07:00 | NUR ---
SHIFT REPORT TO DAY SHIFT
--- NOTE | 2016-07-09 08:00 | NUR ---
SHIFT ASSMT COMPLETED.
[2016-07-09 08:19] VITALS: BP 120/43
--- NOTE | 2016-07-09 12:00 | NUR ---
SET UP GIVEN FOR MEAL.CL IN REACH.
--- NOTE | 2016-07-09 16:00 | NUR ---
SITTING UP IN WC.DENIES NEEDS.
--- NOTE | 2016-07-09 17:10 | NUR ---
CARE TEAM MEETING: CONFERENCE CALL WITH DAUGHTER MYRNA WITH THE TEAM. NEISHA WILL BE HERE THIS WEEKEND AND WILL TOUR SNF FACILITIES.DR. DOMÍNGUEZ IS HER PCP , VANDANA BY [facility] AND SHE HAS A WALKER AND SHOWER CHAIR AT HOME. WILL CONTINUE TO FOLLOW WITH PATIENT
[2016-07-09 19:07] VITALS: BP 115/56
--- NOTE | 2016-07-09 19:40 | NUR ---
PT IN BED WITH HOB COMFORT. WATCHING TV. ALERT AND ORIENTED. PT CODE STATUS IS DNR. PAIN LEVEL 0F 0/10. MIN. TO MOD. ASSIST. LEFT HIP DRESSING C/D/I. NO 02. NO IV. INCONTINENT AT TIMES. BED IN LOWEST POSITION AND CALL LIGHT WIHTIN REACH.
--- NOTE | 2016-07-09 21:56 | NUR ---
LEFT HIP DRESSING REMOVED. DRAINAGE ON INSIDE OF DRESSING. NEW BORDERLINE DRESSING APPLIED.
--- NOTE | 2016-07-09 23:40 | NUR ---
PT IN BED WITH HOB UP FOR COMFORT. EYES CLOSED. CHEST RISING AND FALLING. BED IN LOWEST POSITION AND CALL LIGHT WITHIN REACH.
--- NOTE | 2016-07-10 03:40 | NUR ---
PT IN BED WITH HOB UP FOR COMFORT. EYES CLOSED. RESPIRATIONS EVEN AND UNLABORED. BED IN LOWEST POSITION AND CALL LIGHT WITHIN REACH.
--- NOTE | 2016-07-10 08:00 | NUR ---
SHIFT ASSMT COMPLETED.DENIES NEEDS.POS UP IN BED FOR.BREAKFAST.CL IN REACH.
[2016-07-10 11:45] VITALS: BP 106/43
--- NOTE | 2016-07-10 12:00 | NUR ---
SITTING UP EATING LUNCH.
--- NOTE | 2016-07-10 12:07 | RHP ---
PATIENT: SAVANAH GILBERT MEDICAL RECORD: [id number] ACCOUNT: [id number] LOCATION:[id number] : 34 ADMISSION DATE: 06/29/16 REHABILITATION HISTORY AND PHYSICAL EXAMINATION POST ADMISSION PHYSICIAN EXAMINATION Post Admission Physical Examination and History and Physical DATE OF ADMISSION: 06/29/2016 ADMITTING DIAGNOSIS: Acute displaced intertrochanteric hip fracture. HISTORY OF PRESENT ILLNESS: The patient is an 80-year-old female with status post acute displaced and angulated intertrochanteric fracture of the left femur and status post left total hip arthroplasty. She is a patient of Dr. Contreras. She have presented after a fall with hip pain on June 24. She reported her knee had been swelling and has made difficulty walking. She reports cause of her fall. Reports that she has had knee pain and swelling and history of possible dementia. She was referred to Dr. Rodrigez for this recently. An MRI and EEG scheduled, but was canceled secondary to the ____ surgery, so she has not had this done yet. She reports she has a home health nurse, who stays with her at home most of the time, but admits the nurse was not at home that time she fell. She was previously living in her own home with moderate independently with mobility and ADLs. She is currently max assist to total assist from bed to chair. We will require intensive PT, OT to return to her home in her prior level of functioning. COMORBIDITIES: In this patient include UTI, anemia, hyperkalemia, osteoarthritis and fall. PAST MEDICAL HISTORY: Significant for really just memory loss. PAST SURGICAL HISTORY: None. ALLERGIES: No known drug allergies. CURRENT MEDICATIONS: Include hydrocodone as needed for pain, Aricept 5 mg q.h.s., and Eliquis 2.5 mg b.i.d. HABITS: No alcohol or tobacco use. FAMILY HISTORY: Noncontributory. SOCIAL HISTORY: The patient hopes to return back home and get back to her prior level of function. She does have a caregiver that will stay with her. REVIEW OF SYSTEMS: GENERAL: She denies weakness or fatigue. HEENT: She denies cold, cough, or congestion. CARDIOVASCULAR: Denies chest pain. PHYSICAL EXAMINATION: VITAL SIGNS: Stable, afebrile. GENERAL: Elderly female, in no acute distress, alert upon exam. HEENT: Normocephalic and atraumatic. Mucosa moist. HISTORY AND PHYSICAL [id number] EDWARDMARIAELENA ROSADON Mahi NECK: Supple. No lymphadenopathy. LUNGS: Clear. HEART: Regular rate and rhythm. ABDOMEN: Benign. EXTREMITIES: Consistent with hip surgery. NEUROLOGIC: Slow to mentate, but intact. LABORATORY DATA: Her admitting labs show a white count of 6.3, H&H 8.5 and 25.4 and platelet count was noted to be 231. Sodium 139, potassium 3.6, BUN and creatinine of 10 and 0.6 and blood sugar is noted to be 93. ASSESSMENT: This is an 80-year-old female patient admitted to rehab with a working diagnosis of status post total hip arthroplasty secondary to a left hip fracture. The patient has potential to make improvement. We instituted the following multidisciplinary therapies including to but not limited to physical, occupational, respiratory, speech, nutritional services, prosthetics and orthotics. Given her complex condition and risk for more complications, rehabilitation services cannot be provided at a low level of care such as a care home facility. PLAN: 1. Admit to [facility] rehab for intensive inpatient therapy to include the following disciplines: A. Physical therapy to improve gait, all transfer skills and bed mobility and modifying level. B. Occupational therapy to improve activities of daily living to a modified independent level. C. Case management to assist with discharge planning and placement options. D. Nutrition to assist with nutritional needs. E. Rehabilitation nursing to assist in monitoring the patient's underlying medical conditions and to assist with any type of bowel or bladder management. 2. The patient's current medication and medical care will be continued. 3. The patient will be placed on standard fall precautions. 4. The patient's estimated length of stay is approximately 7-10 days. 5. We will go ahead and monitor H&H closely. I will transfuse her if necessary. 6. We will follow up with care team on Thursday. TRANSINT:[id number] Voice Confirmation ID: [id number] DOCUMENT ID: [id number] TONY notes whether there has been none or any medical/functional change since admission: - TONY attests patient continues to be appropriate for IRF: - HISTORY AND PHYSICAL [id number] SAVANAH GILBERT SCOTT MD at 1207 CC: [id number] DICTATION DATE: 06/30/16 0847 COMPARATOR OPERATOR: 06/30/16 1050 ADM IN [facility] [address] [facility], [facility]
--- NOTE | 2016-07-10 16:00 | NUR ---
NO RESULTS AT THIS TIME FOR MOM X2.SITTING UP IN CHAIR.
--- NOTE | 2016-07-10 20:00 | NUR ---
PT IN BED WITH HOB COMFORT. RESTING QUIETLY. ALERT AND ORIENTED. PT CODE STATUS IS DNR. PAIN LEVEL 0F 0/10. MIN. TO MOD. ASSIST. LEFT HIP DRESSING C/D/I. NO 02. NO IV. INCONTINENT AT TIMES. BED IN LOWEST POSITION AND CALL LIGHT WITHIN REACH.
[2016-07-10 20:10] VITALS: BP 112/64
--- NOTE | 2016-07-11 | NUR ---
PT IN BED WITH HOB UP FOR COMFORT. EYES CLOSED. CHEST RISING AND FALLING. BED IN LOWEST POSITION AND CALL LIGHT WITHIN REACH.
--- NOTE | 2016-07-11 00:50 | NUR ---
RESTING QUIETLY, EYES CLOSED.
--- NOTE | 2016-07-11 01:50 | NUR ---
LEFT HIP DRESSING CHANGED. CLEANSED WITH WOUND SPRAY AND 4X4'S. BORDERLINE GAUZE DRESSING APPLIED. PT TOLERATED PROCEDURE WELL.
[2016-07-11 07:11] LABS: BASOPHILS 0.7 % (0-2); EOSINOPHILS 4.7 % (0-7); HEMATOCRIT 28.4 % (36.0-48.0); HEMOGLOBIN 8.8 g/dL (12-16); IMMATURE GRANULOCYTES 0.2 % (0-5); LYMPHOCYTES 17.2 % (15-50); MCH 31.4 pg (26.0-34.0); MCV 101.4 fL (80.0-100.0); MEAN PLATELET VOLUME 8.6 fL (7.4-10.4); MONOCYTES 14.3 % (2-11); NEUTROPHILS 62.9 % (40-80); PLATELET COUNT 342 10x3/uL (130-400); RDW 17.2 % (11.5-14.5); WBC 4.5 10x3/uL (4.8-10.8)
[2016-07-11 07:25] LABS: ANION GAP 10.2 mmol/L (8-16); CALCIUM 8.7 mg/dL (8.5-10.1); CARBON DIOXIDE 30.8 mmol/L (21.0-32.0); CREATININE - SERUM 0.9 mg/dL (0.6-1.3)
--- NOTE | 2016-07-11 07:46 | NUR ---
RESTING QUIETLY IN BED CALL LIGHT IN REACH
[2016-07-11 11:20] VITALS: BP 112/46
--- NOTE | 2016-07-11 11:29 | NUR ---
REFERRAL FAXED TO [facility] AND TO [facility] IN [place] PER DAUGHTER REQUEST.
[2016-07-11 19:08] VITALS: BP 112/78
--- NOTE | 2016-07-11 19:20 | NUR ---
SITTING ON BEDSIDE. REQUESTED AND RECEIVED ASSIST BACK INTO BED. BED ALARM IS ARMED. SR UP X3.
--- NOTE | 2016-07-12 | NUR ---
PT LYING IN BED WITH HOB UP FOR COMFORT. EYES CLOSED. RESPIRATIONS EVEN AND UNLABORED. BED IN LOWEST POSITION AND CALL LIGHT WITHIN REACH.
--- NOTE | 2016-07-12 03:45 | NUR ---
PT IN BED WITH HOB UP FOR COMFORT. EYES CLOSED. CHEST RISING AND FALLING. BED IN LOWEST POSITION AND CALL LIGHT WITHIN REACH.
--- NOTE | 2016-07-12 12:22 | NUR ---
SITTING UP IN BED WATCHING TV AND EATING LUNCH
[2016-07-12 17:03] VITALS: BP 111/67
[2016-07-12 19:00] VITALS: BP 120/62
--- NOTE | 2016-07-12 19:50 | NUR ---
PT SIT UP IN BED AND LISTEN TO MUSIC.
--- NOTE | 2016-07-12 21:05 | NUR ---
ASSISTED PT TO BATHROOM AND BACK TO BED.
--- NOTE | 2016-07-12 23:55 | NUR ---
ASSISTED PT TO BATHROOM AND BACK TO BED.
--- NOTE | 2016-07-13 02:20 | NUR ---
IN BED, EYES CLOSED. RESPIRING QUIETLY.
--- NOTE | 2016-07-13 08:35 | NUR ---
SITTING UP EATING BREAKFAST DENIES NEEDS CALL LIGHT IN REACH
--- NOTE | 2016-07-13 12:38 | NUR ---
C/O N/V. ZOFRAN PO GIVEN ORDERED. THREW UP LAST NIGHTS SUPPER OF UNDIGESTED CARROTS AND POTATOES. C/O INCREASED WEAKNESS. REFUSED LUNCH.
--- NOTE | 2016-07-13 12:40 | NUR ---
C/O NOT FEELING WELL AND IS HAVING DIARRHEA. REFUSED BREAKFAST.
--- NOTE | 2016-07-13 14:56 | NUR ---
EYES CLOSED. RESP EFFORT NON LABORED. LAYING STILL AND QUIET IN BED
[2016-07-13 19:15] VITALS: BP 118/59
--- NOTE | 2016-07-13 19:50 | NUR ---
PT. IN BED WITH HOB UP FOR COMFORT WITH EYES CLOSED AND RESP. EVEN. PT. AWAKENS EASILY FOR ASSESSMENT. NO VOICED NEEDS AT THIS TIME AND SHE HAS HER CALL LIGHT WITHIN REACH.
--- NOTE | 2016-07-13 23:16 | NUR ---
PT. IN BED WITH HOB UP FOR COMFORT WITH EYES CLOSED AND RESP. DEEP AND EVEN. CALL LIGHT WITHIN REACH.
--- NOTE | 2016-07-14 03:12 | NUR ---
PT. IN BED WITH HOB SLIGHTLY ELEVATED WITH EYES CLOSED AND RESP. DEEP AND EVEN. CALL LIGHT WITHIN REACH.
--- NOTE | 2016-07-14 06:20 | NUR ---
PT. IN BED WITH HOB SLIGHTLY ELEVATED AND HER EYES ARE CLOSED WITH RESP. DEEP AND EVEN. CALL LIGHT WITHIN REACH.
--- NOTE | 2016-07-14 08:18 | NUR ---
SITTING UP EATING BREAKFAST DENIES NEEDS CALL LIGHT IN REACH
[2016-07-14 12:23] VITALS: BP 117/54
--- NOTE | 2016-07-14 13:23 | NUR ---
RESTING IN BED EYES CLOSED
--- NOTE | 2016-07-14 18:13 | NUR ---
SITTING ON SIDE OF BED EATING SUPPER.
--- NOTE | 2016-07-14 18:46 | NUR ---
BEATRIZ REMOVED FROM LEFT HIP. NO S/S INFECTION. INCISION EDGES CLOSED. STERISTRIPS TO INCISION.
[2016-07-14 18:59] VITALS: BP 116/53
--- NOTE | 2016-07-14 22:09 | NUR ---
PT REST IN BED AND WATCH TV.
--- NOTE | 2016-07-14 22:23 | NUR ---
ASSISTED PT TO BATHROOM AND BACK TO BED.
--- NOTE | 2016-07-14 23:44 | NUR ---
PT REQUESTED ASSISTANCE WITH BED POSITIONING, PT ABLE TO FOLLOW DIRECTIONS FROM SITTING ON SIDE OF BED TO LYING POSITION. PT STATES THE SMALL OF HER BACK IS SORE, ELEVATED THE HOB AND FEET OF BED TO DECREASE LUMBAR PRESSURE. PT TOLERATED WELL AND STATED SHE FELT BETTER.
--- NOTE | 2016-07-15 08:00 | NUR ---
SHIFT ASSMT COMPLETED.DENIES NEEDS.UP OOB TO BATHROOM AND BACK.BREAKFAST GIVEN WITH MEAL SET-UP.CL IN REACH.ALARM ON.
[2016-07-15 10:35] VITALS: BP 111/47
--- NOTE | 2016-07-15 12:00 | NUR ---
SITTING UP IN CHAIR EATING LUNCH;VISITING WITH FRIEND.CL IN REACH.
--- NOTE | 2016-07-15 16:00 | NUR ---
TAKEN TO BATHROOM.VOIDED.PLACED IN BED.CL IN REACH.
--- NOTE | 2016-07-15 20:05 | NUR ---
PT. IN BED WITH HOB UP FOR COMFORT AND IS WATCHING TV. ASSESSMENT COMPLETED. NO VOICED NEEDS AT THIS TIME AND HER CALL LIGHT IS WITHIN REACH.
[2016-07-15 20:09] VITALS: BP 103/53
--- NOTE | 2016-07-15 23:21 | NUR ---
PT. IN BED WITH HOB UP SLIGHTLY FOR COMFORT. EYES CLOSED AND RESP. EVEN WITH CALL LIGHT WITHIN REACH.
--- NOTE | 2016-07-16 03:04 | NUR ---
PT. IN BED WITH HOB UP FOR COMFORT WITH EYES CLOSED AND RESP. EVEN. CALL LIGHT WITHIN REACH.
--- NOTE | 2016-07-16 06:28 | NUR ---
PT. IN BED WITH HOB UP FOR COMFORT WITH EYES CLOSED AND RESP. DEEP AND EVEN. PILLOW REMAINS BETWEEN HER KNEES TO HELP PREVENT LLE FROM ROTATING INWARD. CALL LIGHT WITHIN REACH FOR ANY NEEDS.
--- NOTE | 2016-07-16 08:00 | NUR ---
SITTING UP IN CHAIR;STATES SLIGHTLY NAUSEA.SHIFT ASSMT COMPLETED.CL IN REACH.
[2016-07-16 09:29] VITALS: BP 130/60
--- NOTE | 2016-07-16 10:39 | NUR ---
OK FOR DC TO [place] TODAY.
--- NOTE | 2016-07-16 11:26 | NUR ---
DISCHARGED IN STABLE CODITION TO [facility].REPORT GIVEN TO [place] GUTIERREZ LPN.
== END 2016-07-16 11:25 | DRG 560 ==
LOC: D.REHAB 14:12
PROVIDERS: Psychiatry & Neurology Neurology; ADMIT Emergency Medicine
DX: S72.142D Displaced intertrochanteric fracture of left femur, subsequent encounter for closed fracture with routine healing (principal); N39.0 Urinary tract infection, site not specified; D62 Acute posthemorrhagic anemia; E87.5 Hyperkalemia; M19.90 Unspecified osteoarthritis, unspecified site; W19.XXXD Unspecified fall, subsequent encounter; Z66 Do not resuscitate